=== PATIENT | male | born 1995 | race Caucasian/White ===

== ENCOUNTER 2017-06-26 20:00 | Emergency (ER) | payer MEDICAID ==
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
[2017-06-26 21:25] LABS: CHLORIDE,CL 101 mmol/L (98-107); SODIUM,NA 139 mmol/L (136-148)
== END 2017-06-26 23:01 | disposition other institution (70) ==
LOC: MW.ED 20:00
DX: R44.1 Visual hallucinations (principal); R44.0 Auditory hallucinations; Z86.59 Personal history of other mental and behavioral disorders
CPT/HCPCS: 36415; 80053; 80305; 81001; 85025; 93005; 99285; G0480; 99284